=== PATIENT | female | born 1950 | race Caucasian/White ===

== ENCOUNTER 2021-05-07 16:03 | Inpatient (IN) | payer MEDICARE ==
[~2021-05-07] VITALS: Ht 170.2 cm; Wt 71.7 kg
[2021-05-07 16:52] LABS: BASOPHILS % (AUTO) 0.4 % (0.0-5.0); EOSINOPHILS % (AUTO) 2.3 % (0.0-8.0); HEMATOCRIT 45.2 % (36-48); MEAN CORPUSCULAR HGB CONC 31.4 g/dL (32.0-36.0); MEAN CORPUSCULAR VOLUME 95.6 fL (79-99); PLATELET COUNT (AUTO) 272 K/uL (130-400); RED BLOOD CELL COUNT(AUTO) 4.73 MIL/uL (4.00-5.50); RED CELL DISTRIBUTION WIDTH 12.2 % (11.0-15.5); WHITE BLOOD COUNT (AUTO) 7.1 K/uL (4.8-10.8)
[2021-05-07 17:14] LABS: ALBUMIN 3.6 g/dL (3.5-5.0); BILIRUBIN,TOTAL 3.3 mg/dL (0.2-1.0); TOTAL PROTEIN, SERUM 7.5 g/dL (6.0-8.3)
[2021-05-07 17:23] LABS: BILIRUBIN,URINE Moderate (NEGATIVE); GLUCOSE, URINE (UA) Negative (NEGATIVE); KETONES,URINE Negative (NEGATIVE); LEUKOCYTE ESTERASE ,URINE Small (NEGATIVE); NITRATE,URINE Positive (NEGATIVE); OCCULT BLOOD,URINE Moderate (NEGATIVE); PROTEIN,URINE Negative (NEGATIVE)
[2021-05-07 17:35] LABS: APPEARANCE,URINE CLOUDY (CLEAR)
[2021-05-07 17:36] LABS: COLOR,URINE ORANGE (YELLOW)
[2021-05-07 17:38] LABS: BACTERIA,URINE Few /HPF (None Seen); MUCUS,URINE Few LPF (None Seen); SQUAMOUS EPITHELIAL CELL,UR Few /HPF (0-2)
[2021-05-07 17:39] LABS: AMORPHOUS SEDIMENT,UR Rare /LPF (None Seen)
[2021-05-07 17:39] LABS: AMYLASE 47 U/L (25-115); LIPASE 110 U/L (114-286)
[2021-05-07] MEDS ORDERED: ONDANSETRON 4MG INJ IVP ONE (18:00)
[2021-05-07] MEDS ORDERED: MORPHINE 2 MG SYG IVP ONE (18:00)
[2021-05-07] MEDS ORDERED: 0.9%NACL 1000ML 1,000 ML IV SCH ×2 (18:00→18:02)
[2021-05-07] MEDS ORDERED: IOHEXOL 350 MG/ML 100ML INFUS..BTL IV ONE (18:04)
[2021-05-07] MEDS ORDERED: ONDANSETRON 4MG INJ ONE (18:05)
[2021-05-07] MEDS ORDERED: MORPHINE 2 MG SYG ONE (18:05)
[2021-05-07] MEDS ORDERED: ZOSYN 3.375GM +NS 50ML IV STA (20:15)
[2021-05-07] MEDS ORDERED: ONDANSETRON 4MG INJ IV PRN (21:30)
[2021-05-07] MEDS ORDERED: MORPHINE 4 MG SYG IV PRN (21:30)
[2021-05-07] MEDS ORDERED: CEFTRIAXONE 1G VIAL IV SCH (21:30)
[2021-05-07] MEDS ORDERED: ZOSYN 3.375GM+NS 50ML 50 ML ONE (21:33)
[2021-05-07] MEDS: 0.9%NACL 1000ML 1,000 ML IV SCH (22:30)
[2021-05-08 04:37] LABS: BASOPHILS % (AUTO) 0.8 % (0.0-5.0); EOSINOPHILS % (AUTO) 2.4 % (0.0-8.0); HEMATOCRIT 42.5 % (36-48); LYMPHOCYTES % (AUTO) 21.4 % (21.0-51.0); MEAN CORPUSCULAR HEMOGLOBIN 30.4 pg (27.0-33.0); MEAN CORPUSCULAR HGB CONC 31.3 g/dL (32.0-36.0); MEAN CORPUSCULAR VOLUME 97.3 fL (79-99); MONOCYTES % (AUTO) 9.4 % (3.0-13.0); NEUTROPHILS % (AUTO) 65.6 % (40.0-77.0); PLATELET COUNT (AUTO) 254 K/uL (130-400); RED BLOOD CELL COUNT(AUTO) 4.37 MIL/uL (4.00-5.50); RED CELL DISTRIBUTION WIDTH 12.3 % (11.0-15.5)
[2021-05-08 04:46] LABS: CREATININE 0.9 mg/dL (0.5-1.5); MAGNESIUM 1.9 mg/dL (1.80-2.40); PHOSPHORUS 3.3 mg/dL (2.5-4.9); POTASSIUM 3.9 mmol/L (3.5-5.1)
[2021-05-08 08:53] LABS: ALBUMIN 3.2 g/dL (3.5-5.0); BILIRUBIN,DIRECT 2.8 mg/dL (0.0-0.3); TOTAL PROTEIN, SERUM 6.8 g/dL (6.0-8.3)
[2021-05-08] MEDS: FAMOTIDINE 20MG TAB PO SCH (09:33)
[2021-05-08] MEDS: ZOSYN 3.375GM +NS 50ML IV SCH ×2 (09:33→17:45)
[2021-05-08] MEDS: 0.9%NACL 1000ML 1,000 ML IV SCH (09:34)
[2021-05-08 14:18] LABS: AMPHET/METH SCREEN,URINE NEGATIVE (NEGATIVE); BARBITURATE SCREEN, URINE NEGATIVE (NEGATIVE); BENZODIAZEPINES SCREEN,URINE NEGATIVE (NEGATIVE); CANNABINOID SCREEN,URINE NEGATIVE (NEGATIVE); COCAINE SCREEN,URINE NEGATIVE (NEGATIVE); OPIATE SCREEN,URINE NEGATIVE (NEGATIVE); PHENCYCLIDINE SCREEN,URINE NEGATIVE (NEGATIVE)
[2021-05-08 16:16] LABS: HEPATITIS A IGM ANTIBODY Non-Reactive (Negative); HEPATITIS B CORE IGM ANTIBODY Non-Reactive (Negative); HEPATITIS B SURFACE ANTIGEN Non-Reactive (Negative); HEPATITIS C ANTIBODY Non-Reactive (NEGATIVE)
[2021-05-08] MEDS ORDERED: 0.9%NACL 50ML 50 ML IV ONE (17:12)
[2021-05-08 20:00] VITALS: BP 179/90
[2021-05-08] MEDS: MORPHINE 2 MG SYG IV PRN (20:12)
[2021-05-08 23:45] VITALS: BP 155/88
[2021-05-09] VITALS (23 sets, daily range): BP systolic 128–178; BP diastolic 55–90
[2021-05-09] MEDS: 0.9%NACL 1000ML 1,000 ML IV SCH ×3 (00:10→22:23)
[2021-05-09] MEDS: ZOSYN 3.375GM +NS 50ML IV SCH ×3 (00:40→17:32)
[2021-05-09 06:32] LABS: BASOPHILS % (AUTO) 1.3 % (0.0-5.0); EOSINOPHILS % (AUTO) 7.9 % (0.0-8.0); HEMATOCRIT 40.5 % (36-48); LYMPHOCYTES % (AUTO) 23.8 % (21.0-51.0); MEAN CORPUSCULAR HGB CONC 32.1 g/dL (32.0-36.0); MEAN CORPUSCULAR VOLUME 96.4 fL (79-99); MONOCYTES % (AUTO) 8.8 % (3.0-13.0); PLATELET COUNT (AUTO) 230 K/uL (130-400); RED CELL DISTRIBUTION WIDTH 12.3 % (11.0-15.5); WHITE BLOOD COUNT (AUTO) 4.8 K/uL (4.8-10.8)
[2021-05-09 06:47] LABS: ALBUMIN 2.8 g/dL (3.5-5.0); BILIRUBIN,TOTAL 1.8 mg/dL (0.2-1.0); CREATININE 0.8 mg/dL (0.5-1.5); POTASSIUM 3.9 mmol/L (3.5-5.1); TOTAL PROTEIN, SERUM 6.4 g/dL (6.0-8.3)
[2021-05-09] MEDS: FAMOTIDINE 20MG TAB PO SCH (08:25)
[2021-05-09 10:56] LABS: INR 1.08 (0.85-1.15); PROTHROMBIN TIME 11.7 SEC (9.6-11.6)
[2021-05-09 10:57] LABS: PARTIAL THROMBOPLASTIN TIME 26.3 SEC (26.3-35.5)
[2021-05-09] MEDS ORDERED: ACETAMINOPHEN 325 MG TAB PO PRN (11:00)
[2021-05-09] MEDS ORDERED: KETOROLAC 15MG/ML VIAL (15MG/ML) IV PRN (11:00)
[2021-05-09] MEDS ORDERED: BUPIVACAINE/PF 0.5% 30ML VIAL ONE (18:18)
[2021-05-09] MEDS ORDERED: LIDOCAINE PF 100MG/5ML (2%) SYRINGE 5ML ONE (19:24)
[2021-05-09] MEDS ORDERED: ROCURONIUM 10MG/1ML SYR 10 MG/ML ML ONE (19:25)
[2021-05-09] MEDS ORDERED: MIDAZOLAM HCL 1 MG/ML 2ML VIAL ONE (19:25)
[2021-05-09] MEDS ORDERED: PROPOFOL 10 MG/ML 20ML VIAL IV ONE (19:25)
[2021-05-09] MEDS ORDERED: FENTANYL CITRATE PF 50 MCG/1 ML 2ML VIAL ONE ×2 (19:25→19:51)
[2021-05-09] MEDS ORDERED: DEXAMETHASONE SOD PHOSPHATE 4 MG/ML 1ML VIAL ONE (19:46)
[2021-05-09] MEDS ORDERED: GLYCOPYRROLATE 1 MG/5 ML SYRINGE ONE (19:46)
[2021-05-09] MEDS ORDERED: NEOSTIGMINE 5MG/5ML SYR IV ONE (19:46)
[2021-05-09] MEDS ORDERED: ONDANSETRON 4MG INJ ONE (19:47)
[2021-05-09] MEDS ORDERED: SUGAMMADEX SODIUM 200 MG/2 ML VIAL IV ONE (20:03)
[2021-05-09] MEDS ORDERED: MEPERIDINE-PF 25 MG/ML SYG ONE ×2 (20:24→20:41)
[2021-05-09] MEDS ORDERED: IBUPROFEN 800 MG TAB PO PRN (22:30)
[2021-05-10] MEDS: ZOSYN 3.375GM +NS 50ML IV SCH ×3 (00:03→17:00)
[2021-05-10] MEDS: MORPHINE 2 MG SYG IV PRN (00:12)
[2021-05-10] MEDS ORDERED: DULO30CA52 PO (01:00)
[2021-05-10 03:47] VITALS: BP 139/67
[2021-05-10 05:07] LABS: MEAN CORPUSCULAR HEMOGLOBIN 30.5 pg (27.0-33.0); MEAN CORPUSCULAR HGB CONC 31.8 g/dL (32.0-36.0); MEAN CORPUSCULAR VOLUME 95.9 fL (79-99); RED BLOOD CELL COUNT(AUTO) 4.17 MIL/uL (4.00-5.50); RED CELL DISTRIBUTION WIDTH 12.1 % (11.0-15.5); WHITE BLOOD COUNT (AUTO) 7.3 K/uL (4.8-10.8)
[2021-05-10 05:27] LABS: ALBUMIN 2.9 g/dL (3.5-5.0); CREATININE 0.8 mg/dL (0.5-1.5); POTASSIUM 4.2 mmol/L (3.5-5.1); TOTAL PROTEIN, SERUM 6.4 g/dL (6.0-8.3)
[2021-05-10 07:30] VITALS: BP 143/71
[2021-05-10] MEDS: FAMOTIDINE 20MG TAB PO SCH (08:01)
[2021-05-10 11:00] VITALS: BP 153/67
[2021-05-10] MEDS ORDERED: SIMETHICONE 40 MG/0.6 ML ML PO PRN (11:00)
[2021-05-10] MEDS ORDERED: SIMETHICONE 80 MG TAB.CHEW PO SCH (13:00)
[2021-05-10 16:00] VITALS: BP 129/65
[2021-05-10] MEDS ORDERED: AMOX-426 PO (17:29)
[2021-05-10] MEDS ORDERED: FAMO-136 PO (17:31)
[2021-05-10] MEDS ORDERED: CEFU500T67 PO (18:01)
[2021-05-10] MEDS ORDERED: METR-172 PO (18:01)
== END 2021-05-10 18:15 | disposition home or self-care (01) | DRG 418 ==
LOC: EDH 16:13 → EDHIP 21:29 → 3BH 05-08 18:38
PROVIDERS: ADMIT Internal Medicine; ATTEND Internal Medicine
PROC: 0FT44ZZ Resection of Gallbladder, Percutaneous Endoscopic Approach (ICD-10-PCS; principal; 2021-05-09 19:45)
DX: K80.00 Calculus of gallbladder with acute cholecystitis without obstruction (principal); N39.0 Urinary tract infection, site not specified; Z20.822 Contact with and (suspected) exposure to COVID-19; R74.01 Elevation of levels of liver transaminase levels; F39 Unspecified mood [affective] disorder; K76.0 Fatty (change of) liver, not elsewhere classified; K82.8 Other specified diseases of gallbladder; F32.A Depression, unspecified; R79.89 Other specified abnormal findings of blood chemistry; Z90.710 Acquired absence of both cervix and uterus; Z90.49 Acquired absence of other specified parts of digestive tract
CPT/HCPCS: 36415; 71045; 74177; 74181; 76700; 78226; 80048; 80053; 80074; 80076; 80305; 81001; 82150; 83690; 83735; 84100; 84484; 85025; 85027; 85610; 85730; 86850; 86900; 86901; 87088; 87635; 93005; A9537; G0378; J0696; J1100; J1885; J2001; J2175; J2250; J2270; J2405; J2543; J2704; J2710; J3010; J3490; J7030; Q9967

== ENCOUNTER 2021-09-21 10:39 | Emergency (ER) | payer MEDICARE ==
[~2021-09-21] VITALS: Ht 170.2 cm; Wt 71.2 kg
[~2021-09-21 10:39] MED LIST: CEFU500T67 PO; DULO30CA52 PO; FAMO-136 PO; METR-172 PO
[2021-09-21] MEDS ORDERED: D-ME118S47 PO (11:57)
[2021-09-21] MEDS ORDERED: ONDA4TAB10 PO (11:57)
[2021-09-21] MEDS ORDERED: IBUP-2070 PO (11:57)
[2021-09-21 12:09] VITALS: BP 129/87
[2021-09-21] MEDS: IBUPROFEN 600 MG TABLET PO ONE (12:32)
[2021-09-21] MEDS: GUAIFENESIN-DM 200/20 MG 10 ML PO ONE (12:32)
[2021-09-21] MEDS: ONDANSETRON ODT 4MG TAB ONE (12:32)
[2021-09-21] MEDS: ACETAMINOPHEN 500 MG TABLET PO ONE (12:33)
== END 2021-09-21 12:33 | disposition home or self-care (01) ==
LOC: EDH 10:39
DX: U07.1 COVID-19 (principal); F32.A Depression, unspecified; Z88.8 Allergy status to other drugs, medicaments and biological substances; Z79.899 Other long term (current) drug therapy; Z90.89 Acquired absence of other organs; Z90.49 Acquired absence of other specified parts of digestive tract
CPT/HCPCS: 87635; 87804 ×2; 99284; C9803

== ENCOUNTER 2022-11-08 11:00 | Observation (INO) | payer MEDICARE ==
[~2022-11-08] VITALS: Ht 170.2 cm; Wt 76.4 kg
[2022-11-08 09:54] VITALS: BP 146/82; PULSE 77; RESP 16
[2022-11-08 09:56] LABS: BASOPHILS # (AUTO) 0.07 K/uL (0.00-0.20); BASOPHILS % (AUTO) 1.4 % (0.0-5.0); EOSINOPHILS % (AUTO) 8.1 % (0.0-8.0); HEMATOCRIT 45.9 % (36-48); IMMATURE GRANULOCYTE ABSOLUTE 0.02 K/uL (0-1); LYMPHOCYTES # (AUTO) 1.6 K/uL (1.0-4.8); LYMPHOCYTES % (AUTO) 31.9 % (21.0-51.0); MEAN CORPUSCULAR HEMOGLOBIN 31.3 pg (27.0-33.0); MEAN CORPUSCULAR VOLUME 97.9 fL (79-99); MONOCYTES # (AUTO) 0.5 K/uL (0.1-1.0); MONOCYTES % (AUTO) 10.7 % (3.0-13.0); NEUTROPHILS # (AUTO) 2.4 K/uL (1.8-7.7); NEUTROPHILS % (AUTO) 47.5 % (40.0-77.0); PLATELET COUNT (AUTO) 264 K/uL (130-400); RED BLOOD CELL COUNT(AUTO) 4.69 MIL/uL (4.00-5.50); RED CELL DISTRIBUTION WIDTH 12.2 % (11.0-15.5)
[2022-11-08 10:06] LABS: CREATININE 0.9 mg/dL (0.5-1.5); POTASSIUM 5.4 mmol/L (3.5-5.1)
[~2022-11-08 11:00] MED LIST changes: -CEFU500T67 PO; -FAMO-136 PO; -METR-172 PO
[2022-11-10] VITALS (29 sets, daily range): BP systolic 137–184; BP diastolic 69–91; PULSE 83–122; RESP 15–21; O2SAT 94–98
[2022-11-10] MEDS ORDERED: CEFAZOLIN SODIUM 2 GM VIAL ONE (06:17)
[2022-11-10] MEDS ORDERED: LACTATED RINGERS 1000ML 1,000 ML IV ONE (06:17)
[2022-11-10] MEDS ORDERED: SUCCINYLCHOLINE CHLORIDE 20 MG/ML 10 ML VIAL ONE (06:51)
[2022-11-10] MEDS ORDERED: LIDOCAINE PF 100MG/5ML (2%) SYRINGE 5ML ONE (06:51)
[2022-11-10 06:52] LABS: POTASSIUM 4.5 mmol/L (3.5-5.1)
[2022-11-10] MEDS ORDERED: PROPOFOL 10 MG/ML 20ML VIAL IV ONE (06:52)
[2022-11-10] MEDS ORDERED: DEXAMETHASONE SOD PHOSPHATE 10MG/ML 1ML VIAL ONE ×2 (06:52→06:53)
[2022-11-10] MEDS ORDERED: NEOSTIGMINE 5MG/5ML SYR IV ONE (06:52)
[2022-11-10] MEDS ORDERED: ROCURONIUM 10MG/1ML SYR 10 MG/ML ML ONE (06:52)
[2022-11-10] MEDS ORDERED: ONDANSETRON 4MG INJ ONE ×2 (06:52→06:55)
[2022-11-10] MEDS ORDERED: MIDAZOLAM HCL 1 MG/ML 2ML VIAL ONE (06:52)
[2022-11-10] MEDS ORDERED: GLYCOPYRROLATE 1 MG/5 ML SYRINGE ONE (06:52)
[2022-11-10] MEDS ORDERED: FENTANYL CITRATE PF 50 MCG/1 ML 2ML VIAL ONE ×2 (06:53→10:07)
[2022-11-10] MEDS ORDERED: ARTIFICIAL TEARS 3.5 GM OINTMENT ONE (06:56)
[2022-11-10] MEDS ORDERED: MORPHINE PF 100MG/10ML AMP IV ONE ×2 (07:02→07:13)
[2022-11-10] MEDS ORDERED: CEFAZOLIN SODIUM 1 GM VIAL ONE ×2 (07:02→11:34)
[2022-11-10] MEDS ORDERED: THROMBIN-JMI 20000 UNIT KIT TP ONE (07:03)
[2022-11-10] MEDS ORDERED: THROMBIN 20000 UNITS/VIAL POWDER TP ONE (07:12)
[2022-11-10] MEDS ORDERED: CEFAZOLIN SODIUM 1 GM VIAL IVPB ONE (07:16)
[2022-11-10] MEDS ORDERED: LIDOCAINE 2%-EPI PF 30 ML+BUPIVACAINE/PF 0.25% 30ML /60ML SYR IJ SCH ×2 (07:30)
[2022-11-10] MEDS ORDERED: ESMOLOL HCL 10 MG/ML 10 ML VIAL ONE ×2 (07:37→12:18)
[2022-11-10] MEDS ORDERED: CEFAZOLIN SODIUM 2 GM VIAL IVPB ONE ×3 (07:40→11:40)
[2022-11-10] MEDS ORDERED: FENTANYL CITRATE PF 50 MCG/1 ML 5ML AMP IV ONE (08:01)
[2022-11-10] MEDS ORDERED: GENTAMICIN SULFATE 80 MG/2 ML VIAL ONE (10:38)
[2022-11-10] MEDS ORDERED: GENTAMICIN SULFATE 80 MG/2 ML VIAL IM ONE (10:39)
[2022-11-10] MEDS ORDERED: LACTATED RINGERS 1000ML 1,000 ML IV SCH (12:00)
[2022-11-10] MEDS ORDERED: MORPHINE 2 MG SYG IVP PRN (12:00)
[2022-11-10] MEDS ORDERED: PROMETHAZINE HCL 25 MG/ML 1ML AMPULE IM PRN (12:00)
[2022-11-10] MEDS ORDERED: 0.9%NACL 10ML VIAL IVP PRN (12:00)
[2022-11-10] MEDS ORDERED: MEPERIDINE-PF 25 MG/ML SYG ONE ×2 (12:27→12:38)
[2022-11-10] MEDS: CEFAZOLIN SODIUM 2 GM VIAL IVPB SCH (17:15)
[2022-11-10] MEDS: DEXAMETHASONE SOD PHOSPHATE 4 MG/ML 1ML VIAL IVP SCH (17:22)
[2022-11-10] MEDS: HYDROCODONE/ACETAMINOPHEN 5/325 MG TAB PO PRN (20:02)
[2022-11-11] MEDS: CEFAZOLIN SODIUM 2 GM VIAL IVPB SCH (00:38)
[2022-11-11] MEDS: DEXAMETHASONE SOD PHOSPHATE 4 MG/ML 1ML VIAL IVP SCH ×2 (00:40→06:13)
[2022-11-11 03:43] VITALS: BP 136/78; PULSE 95; RESP 19
[2022-11-11 06:35] VITALS: PULSE 93; RESP 18; O2SAT 95
[2022-11-11 07:44] VITALS: BP 134/70; PULSE 84; RESP 18
[2022-11-11] MEDS: HYDROCODONE/ACETAMINOPHEN 5/325 MG TAB PO PRN (07:56)
[2022-11-11 07:58] VITALS: O2SAT 98
[2022-11-11] MEDS ORDERED: DULOXETINE HCL 30 MG CAP PO SCH ×2 (09:00)
[2022-11-11] MEDS ORDERED: KETO10 PO (10:36)
== END 2022-11-11 11:45 | disposition home or self-care (01) ==
LOC: EDSTATUS 11:00 → DAHIP 11-10 05:48 → 4BH 11-10 13:15
PROVIDERS: ADMIT Neurological Surgery; ATTEND Neurological Surgery
DX: M43.16 Spondylolisthesis, lumbar region (principal); M47.816 Spondylosis without myelopathy or radiculopathy, lumbar region; M48.061 Spinal stenosis, lumbar region without neurogenic claudication
CPT/HCPCS: 80048 ×2; 85025; 36415 ×2; 71045; 22633; 22840; 96376 ×2; 96375 ×2; 72110; 96365; J1100 ×5; G0378 ×23; G0379; A5113; A4600; A4510; A4663; J7120 ×2; A4344; J3010 ×3; J0690 ×8; J3490 ×6; J2710; J0330; J2001; J1580 ×2; J2250; J2704; J2274 ×2; J2405 ×2; J2175 ×2; A4649 ×3; A6219; A4930; C1776; A4215; A4223; A4222; A4221; J2550

== ENCOUNTER → 2022-12-01 | Outpatient (CLI) | payer MEDICARE ==
[~2022-12-01] MED LIST changes: +KETO10 PO
== END | disposition home or self-care (01) ==
LOC: RAH 10:03
PROVIDERS: ATTEND Neurological Surgery
DX: M41.86 Other forms of scoliosis, lumbar region (principal); M43.26 Fusion of spine, lumbar region; L45 Papulosquamous disorders in diseases classified elsewhere; Z90.49 Acquired absence of other specified parts of digestive tract; I70.0 Atherosclerosis of aorta; M47.817 Spondylosis without myelopathy or radiculopathy, lumbosacral region
CPT/HCPCS: 72100

== ENCOUNTER 2023-01-08 11:42 | Emergency (ER) | payer MEDICARE ==
[~2023-01-08] VITALS: Ht 170.2 cm; Wt 73.0 kg
[2023-01-08 11:59] VITALS: BP 122/75; PULSE 96; RESP 16; O2SAT 97
[2023-01-08] MEDS ORDERED: MORPHINE 4 MG SYG IM ONE (12:30)
[2023-01-08] MEDS ORDERED: ONDANSETRON ODT 4MG TAB SL ONE (12:30)
[2023-01-08] MEDS ORDERED: CALC200V3 IJ (15:45)
[2023-01-08] MEDS ORDERED: KETOROLAC 15MG/ML VIAL (15MG/ML) IM ONE (16:00)
== END 2023-01-08 16:21 | disposition home or self-care (01) ==
LOC: EDH 11:42
DX: M54.50 Low back pain, unspecified (principal); F32.A Depression, unspecified; Z79.899 Other long term (current) drug therapy; Z90.49 Acquired absence of other specified parts of digestive tract; Z98.890 Other specified postprocedural states; Z88.8 Allergy status to other drugs, medicaments and biological substances
CPT/HCPCS: 99284; 72100; 72070; 96372 ×2; J2270; J1885